=== PATIENT | female | born 1980 | race Caucasian/White ===

== ENCOUNTER 2019-02-05 08:16 | Emergency (ER) | payer OTHER ==
[~2019-02-05] VITALS: Ht 182.9 cm; Wt 89.4 kg
[~2019-02-05 08:16] MED LIST: AZULFIDINE500 M1 PO; CARNITINE250 MG PO; FOLIC ACID1 MG PO; TRILEPTAL150 MG; TRILEPTAL150 MG PO; URECHOLINE25 MG PO
== END 2019-02-05 11:16 | disposition home or self-care (01) ==
LOC: ER 08:16
DX: J11.1 Influenza due to unidentified influenza virus with other respiratory manifestations (principal)

== ENCOUNTER → 2019-12-08 | Emergency (ER) | payer OTHER ==
[~2019-12-08] VITALS: Ht 182.9 cm; Wt 88.5 kg
== END | disposition home or self-care (01) ==
LOC: ER 14:43
DX: K58.9 Irritable bowel syndrome, unspecified (principal); N20.0 Calculus of kidney

== ENCOUNTER 2023-05-16 16:03 | Emergency (ER) | payer OTHER ==
[~2023-05-16] VITALS: Ht 182.9 cm; Wt 93.0 kg
== END 2023-05-16 22:53 | disposition home or self-care (01) ==
LOC: ER 16:03
DX: N20.9 Urinary calculus, unspecified (principal); R10.2 Pelvic and perineal pain